=== PATIENT | male | born 1990 | race Caucasian/White ===

== ENCOUNTER 2023-06-04 04:55 | Emergency (ER) | payer MEDICARE, MEDICAID, SELFPAY ==
[2023-06-04] VITALS (21 sets, daily range): BP systolic 104–146; BP diastolic 52–72; PULSE 77–109; RESP 14–31; TEMP 36.7; O2SAT 98–99; BMI 23.1
[2023-06-04] MEDS: LORAZEPAM 2 MG/ML 1 ML VIAL IV ×2 (05:05→06:07)
--- NOTE | 2023-06-04 05:05 | ECG_ITS ---
[facility] Test Date: 2023-06-04 Pat Name: Chao Hampton Department: Room: - Gender: Male Clerical Adjudicator: : 1990 Requested By: [id number] Order Number: [id number] Reading MD: ALEX NORTON Measurements Intervals [place] Rate: 107 P: 71 MO: 152 QRS: 94 QRSD: 106 T: 54 QT: 358 QTc: 421 Interpretive Statements 1120 Sinus tachycardia [address] elevation 6220 Possible left atrial enlargement 7102 Moderate right axis deviation 0102 ARTIFACT PRESENT 9140 abnormal rhythm ECG No previous ECG available for comparison Electronically Signed On 06-04-2023 7:12:34 EDT by ALEX NORTON
--- NOTE | 2023-06-04 05:07 | ED.GENADUL1 ---
HPI - General Adult General Chief complaint: Psychiatric Symptoms Stated complaint: MENTAL HEALTH EVALUATION Time Seen by Provider: 06/04/23 05:39 Source: patient and other (EMS) Source information: EMS, family Mode of arrival: ambulance Limitations: altered mental status (drug induced mood disorder) History of Present Illness HPI narrative: This 33-year-old male is brought to the emergency department from home for evaluation. According to the report received from EMS they were called initially for shortness of breath. They have picked this patient up before for an overdose. At that time it was an opiate overdose. Upon EMS arrival the patient was ambulatory to the ambulance. The police had also been called and the police had told the patient that he could either come to the hospital or go to intermediate. Patient appears to be under the influence of an amphetamine or combination of drugs including amphetamine. He is awake with grimacing facial movements, psychomotor movements involving his trunk, upper and lower extremities. He states he thinks he is here because his esophagus was being pulled out of his body and he has appendicitis. Asked him if he was having any abdominal pain and he points to the left lower quadrant. He was asked by the band booker if he was using methamphetamine and he became extremely agitated. Related Data Allergies Allergy/AdvReac Type Severity Reaction Status Date / Time No Known Drug Allergies Allergy Verified 06/04/23 05:08 Review of Systems ROS Status of ROS unobtainable due to medical condition and unobtainable due to mental status Exam Narrative Exam Narrative: Nurses note and vital signs reviewed ; Patient is afebrile, he is tachycardic with a pulse of 109, blood pressure is elevated at 146/72, he is not hypoxic with pulse ox of 99 percent on room air General: Nontoxic, alert, agitated thin male, he is exhibiting psychomotor agitation with grimacing of his face, uncontrollable movements of his arms, legs and torso, no respiratory distress Skin: Warm, dry, no pallor noted. There is no rash noted. No signs of infestation appreciated Head: Normocephalic, atraumatic Eye: Normal conjunctiva, no drainage, EOMI. PERRL Ears, Nose, Mouth, and Throat: oral mucosa is dry Cardiovascular: Regular Rate and Rhythm, Tachycardic at 109, no appreciable murmurs rubs or gallops Respiratory: Patient is in no distress, no accessory muscle use, lungs are clear to auscultation, no wheezing, rales or rhonchi Back: non-tender, no CVA tenderness bilaterally to percussion. GI: Normal bowel sounds, no tenderness to palpation, no masses appreciated. No rebound, guarding, or rigidity noted. Musculoskeletal: The patient has no evidence of calf tenderness, no pitting edema, symmetrical pulses noted bilaterally Neurological: Appears under the influence of amphetamines with psychomotor agitation, grimacing, no gross focal deficits Psychiatric: Cooperative with this provider and nursing staff, but allegedly agitated with EMS and family members Constitutional Vital Signs, click to edit/add: Last Vital Signs Temp 98.1 F 06/04/23 05:00 Pulse 102 H 06/04/23 05:30 Resp 20 06/04/23 05:30 BP 133/61 H 06/04/23 05:30 Pulse Ox 98 06/04/23 05:30 O2 Del Method Room Air 06/04/23 05:00 Course Vital Signs Vital signs: Vital Signs Temperature 98.1 F 06/04/23 05:00 Pulse Rate 109 H 06/04/23 05:00 Respiratory Rate 20 06/04/23 05:00 Blood Pressure 146/72 H 06/04/23 05:00 Pulse Oximetry 99 06/04/23 05:00 Oxygen Delivery Method Room Air 06/04/23 05:00 Temperature 98.1 F 06/04/23 05:00 Pulse Rate 102 H 06/04/23 05:30 Respiratory Rate 20 06/04/23 05:30 Blood Pressure 133/61 H 06/04/23 05:30 Pulse Oximetry 98 06/04/23 05:30 Oxygen Delivery Method Room Air 06/04/23 05:00 Medical Decision Making MDM Narrative Medical decision making narrative: This 33-year-old male is brought to the emergency department by EMS from home. He has a history of substance abuse. Upon arrival he was taken to room 4. He is cooperative but bizarre with facial grimacing and excessive psychomotor agitation. He'll elevate it put an IV in his arm and was given 2 mg of IV Ativan and IV fluids. EKG done upon arrival is a sinus rhythm at 10 9 bpm. Routine labs were ordered and are reviewed. He has an elevated white count, low CO2 at 13, glucose was borderline low at 60. He requested water to drink upon arrival and tolerated a bottle of water without difficulty. His aspirin, tylenol and ETOH levels are normal. The 2 mg of Ativan he received initially calmed his agitation mildly but he was still quite agitated, he was talking to people that were not in the room and could not lie still. He was given an additional 2 mg of Ativan after he was able to tolerate some Gatorade. After a liter of fluid I switched him to D5 LR. His agitation has resolved and he has fallen asleep. He has not exhibited any seizure activity at this time. His vital signs 99 and regular with a blood pressure of 114/58. He will be signed out to Dr Vivas at shift change for further evaluation and disposition. Urine tox is pending. Critical care time 40 minutes Lab Data Labs: Lab Results 06/04/23 Range/Units 05:00 WBC 14.9 H (4.0-11.0) 10^3/uL RBC 4.02 L (4.70-6.10) 10^6/uL Hgb 12.9 L (14.0-18.0) g/dL Hct 37.5 L (42.0-54.0) % MCV 93.3 (80.0-94.0) fL MCH 32.1 (25.9-34.0) pg MCHC 34.4 (29.9-35.2) g/dL RDW 12.6 (11.0-15.0) % Plt Count 253 (150-450) 10^3/uL MPV 9.8 (9.5-13.5) fL Neut % (Auto) 72.8 (43.0-75.0) % Lymph % (Auto) 11.7 L (20.5-60.0) % [place] % (Auto) 15.0 H (1.7-12.0) % Eos % (Auto) 0.0 L (0.9-7.0) % Baso % (Auto) 0.2 (0.2-2.0) % Neut # (Auto) 10.9 H (1.4-6.5) 10^3/uL Lymph # (Auto) 1.8 (1.2-3.8) 10^3/uL [place] # (Auto) 2.2 H (0.3-0.8) 10^3/uL Eos # (Auto) 0.0 (0.0-0.7) 10^3/uL Baso # (Auto) 0.0 (0.0-0.1) 10^3/uL Abs Immat Gran (auto) 0.04 H (0.00-0.03) 10^3/uL Imm/Tot Granulo (auto) 0.3 (0.0-0.5) % Sodium 138 (136-145) mmol/L Potassium 3.5 (3.5-5.1) mmol/L Chloride 100 (98-107) mmol/L Carbon Dioxide 13.0 L (21.0-32.0) mmol/L Anion Gap 28.5 BUN 24.0 H (7.0-18.0) mg/dL Creatinine 1.23 (0.70-1.30) mg/dL Est GFR ( Amer) >60 (>=60) Est GFR (Non-Af Amer) >60 (>=60) BUN/Creatinine Ratio 19.5 Glucose 60 L (74-106) mg/dL Calcium 9.5 (8.5-10.1) mg/dL Total Bilirubin 1.7 H (0.2-1.0) mg/dL AST 46 H (15-37) U/L ALT 26 (16-63) U/L Alkaline Phosphatase 44 L (46-116) U/L Total Protein 8.3 H (6.4-8.2) g/dL Albumin 4.8 (3.4-5.0) g/dL Globulin 3.5 g/dL Albumin/Globulin Ratio 1.4 Salicylates 5.1 (<=19.9) mg/dL Acetaminophen <2.0 L (10.0-30.0) ug/mL Ethanol Quant <3 mg/dL ECG Data Attestation: I personally reviewed and interpreted this ECG as follows: (Sinus tachycardia 107 beats for minute, normal axis, interpretation limited by patient movement, no acute ST segment elevation or T-wave inversion) Discharge Plan Discharge Chief Complaint: Psychiatric Symptoms Clinical Impression: Active substance abuse Patient Disposition: Still a Patient Referrals: Physician,Non-Staff, MD [Primary Care Provider] - 1 week
[2023-06-04 05:16] LABS: Basophils Percent Auto 0.2 % (0.2-2.0); Hematocrit 37.5 % (42.0-54.0); Hemoglobin 12.9 g/dL (14.0-18.0); Immature Granulocytes Abs Auto 0.04 10^3/uL (0.00-0.03); Immature Granulocytes Pct Auto 0.3 % (0.0-0.5); Lymphocytes Absolute Auto 1.8 10^3/uL (1.2-3.8); Lymphocytes Percent Auto 11.7 % (20.5-60.0); Mean Corpuscular HGB Conc 34.4 g/dL (29.9-35.2); Mean Corpuscular Hemoglobin 32.1 pg (25.9-34.0); Mean Corpuscular Volume 93.3 fL (80.0-94.0); Mean Platelet Volume 9.8 fL (9.5-13.5); Monocytes Absolute Auto 2.2 10^3/uL (0.3-0.8); Neutrophils Absolute Auto 10.9 10^3/uL (1.4-6.5); Neutrophils Percent Auto 72.8 % (43.0-75.0); Platelet Count 253 10^3/uL (150-450); Red Blood Count 4.02 10^6/uL (4.70-6.10); Red Cell Distribution Width 12.6 % (11.0-15.0); White Blood Count 14.9 10^3/uL (4.0-11.0)
[2023-06-04] MEDS: 0.9 % SODIUM CHLORIDE 1,000 ML 1000 ML IV (05:16)
[2023-06-04 05:29] LABS: Ethanol <3 mg/dL
[2023-06-04 05:30] LABS: Salicylate 5.1 mg/dL (<=19.9)
[2023-06-04 05:33] LABS: Acetaminophen <2.0 ug/mL (10.0-30.0); Alanine Aminotransferase 26 U/L (16-63); Albumin Globulin Ratio 1.4; Albumin Level 4.8 g/dL (3.4-5.0); Alkaline Phosphatase 44 U/L (46-116); Anion Gap 28.5; Aspartate Amino Transferase 46 U/L (15-37); BUN Creatinine Ratio 19.5; Bilirubin Total 1.7 mg/dL (0.2-1.0); Calcium 9.5 mg/dL (8.5-10.1); Chloride 100 mmol/L (98-107); Estimated GFR (African America >60 (>=60); Estimated GFR (Non-African Ame >60 (>=60); Globulin 3.5 g/dL; Glucose 60 mg/dL (74-106); Potassium 3.5 mmol/L (3.5-5.1); Sodium 138 mmol/L (136-145); Total Protein 8.3 g/dL (6.4-8.2)
--- NOTE | 2023-06-04 08:10 | ED.GENADUL1 ---
HPI - General Adult General Chief complaint: Psychiatric Symptoms Stated complaint: MENTAL HEALTH EVALUATION Time Seen by Provider: 06/04/23 05:39 Source: patient and other (EMS) Source information: EMS, family Mode of arrival: ambulance Limitations: altered mental status (drug induced mood disorder) Related Data Allergies Allergy/AdvReac Type Severity Reaction Status Date / Time No Known Drug Allergies Allergy Verified 06/04/23 05:08 Exam Constitutional Vital Signs, click to edit/add: Last Vital Signs Temp 98.1 F 06/04/23 05:00 Pulse 89 06/04/23 13:00 Resp 19 06/04/23 13:00 BP 123/61 H 06/04/23 13:30 Pulse Ox 98 06/04/23 08:00 O2 Del Method Room Air 06/04/23 05:00 Course Vital Signs Vital signs: Vital Signs Temperature 98.1 F 06/04/23 05:00 Pulse Rate 109 H 06/04/23 05:00 Respiratory Rate 20 06/04/23 05:00 Blood Pressure 146/72 H 06/04/23 05:00 Pulse Oximetry 99 06/04/23 05:00 Oxygen Delivery Method Room Air 06/04/23 05:00 Temperature 98.1 F 06/04/23 05:00 Pulse Rate 89 06/04/23 13:00 Respiratory Rate 19 06/04/23 13:00 Blood Pressure 123/61 H 06/04/23 13:30 Pulse Oximetry 98 06/04/23 08:00 Oxygen Delivery Method Room Air 06/04/23 05:00 Medical Decision Making MDM Narrative Medical decision making narrative: patient remained under observation. He was unable to provide a urine specimen. A percutaneous bladder scan was done and had over 1000 mL of urine but he could not void. For that reason the nursing staff was able to pass a one-time Steen catheter with a large return of urine. The urine toxicology screen then showed amphetamines and methamphetamine and marijuana. He remained quiet and comfortable throughout his stay here. I did see him several times. We tried reaching out and contacting family members for final disposition but were unable to do so until approximately 1 in the afternoon. Even at that time we were unable to provide a ride so our security incident handler at the hospital will take him home. This was cleared by administration. He does not have or voice any suicidal thoughts or ideation. Lab Data Labs: Lab Results 06/04/23 06/04/23 06/04/23 Range/Units 05:00 10:35 11:16 WBC 14.9 H (4.0-11.0) 10^3/uL RBC 4.02 L (4.70-6.10) 10^6/uL Hgb 12.9 L (14.0-18.0) g/dL Hct 37.5 L (42.0-54.0) % MCV 93.3 (80.0-94.0) fL MCH 32.1 (25.9-34.0) pg MCHC 34.4 (29.9-35.2) g/dL RDW 12.6 (11.0-15.0) % Plt Count 253 (150-450) 10^3/uL MPV 9.8 (9.5-13.5) fL Neut % (Auto) 72.8 (43.0-75.0) % Lymph % (Auto) 11.7 L (20.5-60.0) % [place] % (Auto) 15.0 H (1.7-12.0) % Eos % (Auto) 0.0 L (0.9-7.0) % Baso % (Auto) 0.2 (0.2-2.0) % Neut # (Auto) 10.9 H (1.4-6.5) 10^3/uL Lymph # (Auto) 1.8 (1.2-3.8) 10^3/uL [place] # (Auto) 2.2 H (0.3-0.8) 10^3/uL Eos # (Auto) 0.0 (0.0-0.7) 10^3/uL Baso # (Auto) 0.0 (0.0-0.1) 10^3/uL Abs Immat Gran (auto) 0.04 H (0.00-0.03) 10^3/uL Imm/Tot Granulo (auto) 0.3 (0.0-0.5) % Sodium 138 135 L (136-145) mmol/L Potassium 3.5 3.6 (3.5-5.1) mmol/L Chloride 100 103 (98-107) mmol/L Carbon Dioxide 13.0 L 19.2 L (21.0-32.0) mmol/L Anion Gap 28.5 16.4 BUN 24.0 H 16.0 (7.0-18.0) mg/dL Creatinine 1.23 0.93 (0.70-1.30) mg/dL Est GFR ( Amer) >60 >60 (>=60) Est GFR (Non-Af Amer) >60 >60 (>=60) BUN/Creatinine Ratio 19.5 17.2 Glucose 60 L 126 H (74-106) mg/dL Calcium 9.5 8.3 L (8.5-10.1) mg/dL Total Bilirubin 1.7 H (0.2-1.0) mg/dL AST 46 H (15-37) U/L ALT 26 (16-63) U/L Alkaline Phosphatase 44 L (46-116) U/L Total Protein 8.3 H (6.4-8.2) g/dL Albumin 4.8 (3.4-5.0) g/dL Globulin 3.5 g/dL Albumin/Globulin Ratio 1.4 Salicylates 5.1 (<=19.9) mg/dL Urine Opiates Screen Negative (NEGATIVE) Ur Buprenorphine Scrn Negative (NEGATIVE) Ur Oxycodone Screen Negative (NEGATIVE) Urine Methadone Screen Negative (NEGATIVE) Ur Propoxyphene Screen Negative (NEGATIVE) Acetaminophen <2.0 L (10.0-30.0) ug/mL Ur Barbiturates Screen Negative (NEGATIVE) U Tricyclic Antidepress Negative (NEGATIVE) Ur Phencyclidine Scrn Negative (NEGATIVE) Ur Amphetamines Screen Positive A (NEGATIVE) U Methamphetamines Scrn Positive A (NEGATIVE) U Benzodiazepines Scrn Negative (NEGATIVE) Urine Cocaine Screen Negative (NEGATIVE) U Cannabinoids Screen Positive A (NEGATIVE) Ethanol Quant <3 mg/dL Discharge Plan Discharge Chief Complaint: Psychiatric Symptoms Clinical Impression: Active substance abuse Patient Disposition: Home, Self-Care Time of Disposition Decision: 13:25 Instructions: Methamphetamine Use Disorder (ED) Additional Instructions: center follow-up REHAB programs Stand Alone Forms: Portal Instructions Referrals: Physician,Non-Staff, MD [Primary Care Provider] - 1 week Discharge Date/Time: 06/04/23 16:20
[2023-06-04 11:09] LABS: Anion Gap 16.4; BUN Creatinine Ratio 17.2; Calcium 8.3 mg/dL (8.5-10.1); Carbon Dioxide 19.2 mmol/L (21.0-32.0); Chloride 103 mmol/L (98-107); Estimated GFR (African America >60 (>=60); Estimated GFR (Non-African Ame >60 (>=60); Glucose 126 mg/dL (74-106); Potassium 3.6 mmol/L (3.5-5.1); Sodium 135 mmol/L (136-145)
[2023-06-04 12:02] LABS: Amphetamine Screen Urine POSITIVE (NEGATIVE); Barbiturates Screen Urine NEGATIVE (NEGATIVE); Benzodiazepines Screen Urine NEGATIVE (NEGATIVE); Cannabinoid Screen Urine POSITIVE (NEGATIVE); Cocaine Screen Urine NEGATIVE (NEGATIVE); Methadone Screen Urine NEGATIVE (NEGATIVE); Methamphetamines Screen Urine POSITIVE (NEGATIVE); Opiate Screen Urine NEGATIVE (NEGATIVE); Oxycodone Screen Urine NEGATIVE (NEGATIVE); Phencyclidine Screen Urine NEGATIVE (NEGATIVE); Tricyclic Antidepressant Urine NEGATIVE (NEGATIVE)
[2023-06-04 12:03] LABS: Buprenorphine Screen Urine NEGATIVE (NEGATIVE)
== END 2023-06-04 16:20 | disposition home or self-care (01) ==
PROVIDERS: Emergency Medicine Emergency Medical Services; Emergency Provider Emergency Medicine
DX: F19.10 Other psychoactive substance abuse, uncomplicated (principal); R45.1 Restlessness and agitation; R41.82 Altered mental status, unspecified
CPT/HCPCS: 36415; 80048; 80053; 80179; 80307; 80320; 80329; 85025; 93005; 96374; 96376; 99285